=== PATIENT | female | born 1985 | race Caucasian/White ===

== ENCOUNTER → 2016-08-14 | Outpatient (CLI) | payer OTHER ==
[2016-08-14 17:37] LABS: CH 29.6; CHCM 33.2; HCT 39.9 % (34.0-46.0); HDW 2.52; HGB 12.9 gm/dL (11.4-16.0); MCHC 32.3 g/dL (31.0-37.0); MCV 89.7 fL (80.0-100.0); Mean Platelet Volume 7.1; RBC 4.45 m/uL (3.80-5.40); RDW 12.6 % (11.5-15.5); WBC 9.3 k/uL (3.8-10.6)
[2016-08-14 18:12] LABS: ALT 25 U/L (9-52); AST 18 U/L (14-36); Alkaline Phosphatase 74 U/L (38-126); Anion Gap 11 mmol/L; Blood Urea Nitrogen 12 mg/dL (7-17); Calcium 9.2 mg/dL (8.4-10.2); Carbon Dioxide 28 mmol/L (22-30); Chloride 104 mmol/L (98-107); Glucose 85 mg/dL (74-99); Non-African American GFR(MDRD) >60 (>60 ml/min/1.73 sqM); Potassium 4.1 mmol/L (3.5-5.1); Sodium 143 mmol/L (137-145); Total Bilirubin 0.2 mg/dL (0.2-1.3); Total Protein 7.3 g/dL (6.3-8.2)
== END | disposition home or self-care (01) ==
LOC: LABWHC1 17:00
PROVIDERS: ATTEND Psychiatry & Neurology Psychiatry
DX: E03.9 Hypothyroidism, unspecified (principal)
CPT/HCPCS: 36415; 80053; 84439; 84443; 85027

== ENCOUNTER → 2017-08-22 | Outpatient (CLI) | payer OTHER ==
[2017-08-22 14:19] LABS: HCT 42.5 % (34.0-46.0); MCH 29.3 pg (25.0-35.0); MCV 88.8 fL (80.0-100.0); Mean Platelet Volume 6.9; Platelet Count 255 k/uL (150-450); RBC 4.78 m/uL (3.80-5.40); RDW 12.7 % (11.5-15.5); WBC 6.6 k/uL (3.8-10.6)
[2017-08-22 14:36] LABS: ALT 33 U/L (9-52); AST 21 U/L (14-36); Albumin 4.5 g/dL (3.5-5.0); Alkaline Phosphatase 79 U/L (38-126); Anion Gap 11 mmol/L; Blood Urea Nitrogen 10 mg/dL (7-17); Calcium 9.7 mg/dL (8.4-10.2); Carbon Dioxide 28 mmol/L (22-30); Chloride 103 mmol/L (98-107); Glucose 93 mg/dL (74-99); Potassium 4.2 mmol/L (3.5-5.1); Sodium 142 mmol/L (137-145); Total Bilirubin 0.6 mg/dL (0.2-1.3); Total Protein 7.7 g/dL (6.3-8.2)
[2017-08-22 14:53] LABS: T4, Free (Free Thyroxine) 0.73 ng/dL (0.78-2.19)
== END | disposition home or self-care (01) ==
LOC: LABWHC1 13:42
PROVIDERS: ATTEND Psychiatry & Neurology Psychiatry
DX: F31.60 Bipolar disorder, current episode mixed, unspecified (principal); Z79.899 Other long term (current) drug therapy
CPT/HCPCS: 36415; 80053; 84439; 84443; 85027

== ENCOUNTER → 2018-10-15 | Outpatient (CLI) | payer SELFPAY ==
[2018-10-16 16:33] VITALS: BMI 25.8
== END ==
LOC: LABWHC1 13:37
PROVIDERS: ATTEND Psychiatry & Neurology Psychiatry
DX: E66.9 Obesity, unspecified (principal)
CPT/HCPCS: 97802

== ENCOUNTER 2018-11-09 14:48 | Emergency (ER) | payer OTHER ==
[2018-11-09 14:56] VITALS: RESP 18; TEMP 98.2
--- NOTE | 2018-11-09 15:44 | ED ---
Female Urogenital HPI - General Chief complaint: Urogenital Stated complaint: Urogenital Time Seen by Provider: 11/09/18 15:03 Source: patient, RN notes reviewed Mode of arrival: ambulatory Limitations: no limitations - History of Present Illness Initial comments: 33-year-old female sent emergency Department chief complaint of dysuria. Patient has urinary frequency and painful urination that started today. Patient reports no fever no chills no flank pain. Patient states she has some mild cramping after she urinates. Patient denies any chance . Last mental cycle 1 week ago. Denies any vaginal bleeding vaginal discharge. Last Menstrual Period: 10/20/18 - Related Data Previous Rx's Medication Instructions Recorded Phenazopyridine [Pyridium] 200 mg PO TID #6 tablet 11/09/18 Sulfamethox-Tmp 800-160Mg [Bactrim 1 each PO Q12HR #10 tab 11/09/18 Ds] Allergies Allergy/AdvReac Type Severity Reaction Status Date / Time acetaminophen [From Tylenol] Allergy Rash/Hives Verified 11/09/18 14:56 aspirin Allergy Rash/Hives Verified 11/09/18 14:56 Review of Systems ROS Statement: Those systems with pertinent positive or pertinent negative responses have been documented in the HPI. ROS Other: All systems not noted in ROS Statement are negative. Past Medical History Past Medical History: No Reported History History of Any Multi-Drug Resistant Organisms: None Reported Past Surgical History: No Surgical Hx Reported Past Psychological History: Anxiety Smoking Status: Never smoker Past Alcohol Use History: None Reported Past Drug Use History: None Reported General Exam Limitations: no limitations General appearance: alert, in no apparent distress Head exam: Present: atraumatic, normocephalic, normal inspection Neck exam: Present: normal inspection, full ROM. Absent: tenderness, meningismus, lymphadenopathy Respiratory exam: Present: normal lung sounds bilaterally. Absent: respiratory distress, wheezes, rales, rhonchi, stridor Cardiovascular Exam: Present: regular rate, normal rhythm, normal heart sounds. Absent: systolic murmur, diastolic murmur, rubs, gallop, clicks GI/Abdominal exam: Present: soft, tenderness (Mild suprapubic), normal bowel sounds. Absent: distended, guarding, rebound, rigid Back exam: Absent: CVA tenderness (R), CVA tenderness (L) Skin exam: Present: warm, dry, intact, normal color. Absent: rash Course Vital Signs 11/09/18 14:54 Temperature 98.2 F Pulse Rate 88 Respiratory 18 Rate Blood Pressure 117/73 O2 Sat by Pulse 97 Oximetry Medical Decision Making - Medical Decision Making 33-year-old female presented for dysuria. Patient is noted to have hematuria on urinalysis. CT is obtained rule out any evidence of kidney mass for kidney stone. There is no evidence of this. Patient has hemorrhagic cystitis. Patient was placed on antibiotics and Pyridium. - Lab Data Lab Results 11/09/18 11/09/18 Range/Units 15:38 15:38 Urine Color Yellow Urine Appearance Cloudy H (Clear) Urine pH 7.0 (5.0-8.0) Ur Specific [place] 1.030 (1.001-1.035) Urine Protein Trace H (Negative) Urine Glucose (UA) Negative (Negative) Urine Ketones Negative (Negative) Urine Blood Moderate H (Negative) Urine Nitrite Negative (Negative) Urine Bilirubin Negative (Negative) Urine Urobilinogen 2.0 (<2.0) mg/dL Ur Leukocyte Esterase Negative (Negative) Urine RBC 128 H (0-5) /hpf Urine WBC 4 (0-5) /hpf Ur Squamous Epith Cells 4 (0-4) /hpf Urine Bacteria Rare H (None) /hpf Urine Mucus Rare H (None) /hpf Urine HCG, Qual Not Detected (Not Detectd) Disposition Clinical Impression: Hemorrhagic cystitis Disposition: HOME SELF-CARE Condition: Stable Instructions (If sedation given, give patient instructions): Urinary Tract Infection in Women (ED) Additional Instructions: Please return to the Emergency Department if symptoms worsen or any other concerns. Prescriptions: Sulfamethox-Tmp 800-160Mg [Bactrim Ds] 1 each PO Q12HR #10 tab Phenazopyridine [Pyridium] 200 mg PO TID #6 tablet Is patient prescribed a controlled substance at d/c from ED?: No Referrals: Sky Brock MD [Primary Care Provider] - 1-2 days Time of Disposition: 17:07
[2018-11-09 16:05] LABS: Appearance,Urine Cloudy (Clear); Bacteria,Urine Rare /hpf; Bilirubin,Urine Negative (Negative); Blood,Urine Moderate (Negative); Color,Urine Yellow; Glucose,Urine (UA) Negative (Negative); Ketones,Urine Negative (Negative); Leukocyte Esterase,Urine Negative (Negative); Mucus,Urine Rare /hpf; Nitrite,Urine Negative (Negative); Protein,Urine Trace (Negative); RBC,Urine 128 /hpf (0-5); Squamous Epithelial Cell,Urine 4 /hpf (0-4)
--- NOTE | 2018-11-09 17:04 | CT ---
EXAMINATION TYPE: CT abdomen pelvis wo con DATE OF EXAM: 11/09/2018 COMPARISON: None HISTORY: Left side flank and groin pain. CT DLP: 456.8 mGycm Automated exposure control for dose reduction was used. TECHNIQUE: Helical acquisition of images from the lung bases through the pelvis. FINDINGS: Lack of intravenous contrast could compromise sensitivity. Calcification in the left hemipe lvis may represent phlebolith. LUNG BASES: No significant abnormality is appreciated. AORTA: No significant abnormality is appreciated. LIVER/GB: No significant abnormality is appreciated. Gallbladder is contracted. PANCREAS: No significant abnormality is seen. SPLEEN: No significant abnormality is seen. ADRENALS: No significant abnormality is seen. KIDNEYS: Possible parapelvic cysts involving the left kidney lower pole, there is no hydronephrosis e vident bilaterally. REPRODUCTIVE ORGANS: No significant abnormality is seen. URINARY BLADDER: No significant abnormality is seen. BOWEL: No significant abnormality is seen. FREE AIR: No Free Air is visible. ASCITES: None visible. PELVIC ADENOPATHY: None visualized. RETROPERITONEAL ADENOPATHY: No Retroperitoneal Adenopathy visible. OSSEOUS STRUCTURES: No significant abnormality is seen. IMPRESSION: NONCONTRAST EXAM. NO SIGNIFICANT ABNORMALITY IS EVIDENT.
[2018-11-09 17:26] VITALS: BP 121/69; PULSE 81
== END 2018-11-09 17:25 | disposition home or self-care (01) ==
LOC: EC 14:48
DX: N30.91 Cystitis, unspecified with hematuria (principal); Z88.6 Allergy status to analgesic agent
CPT/HCPCS: 74176; 81001; 81025; 99284

== ENCOUNTER 2018-11-12 23:52 | Emergency (ER) | payer OTHER ==
[2018-11-13] MEDS ORDERED: PHENAZOPYRIDINE 200 MG TAB PO STA (01:10)
[2018-11-13 01:31] LABS: Appearance,Urine Cloudy (Clear); Bacteria,Urine Many /hpf; Bilirubin,Urine Negative (Negative); Blood,Urine Negative (Negative); Color,Urine Yellow; Glucose,Urine (UA) Negative (Negative); Ketones,Urine Negative (Negative); Leukocyte Esterase,Urine Negative (Negative); Mucus,Urine Rare /hpf; Nitrite,Urine Negative (Negative); PH, Urine 6.5 (5.0-8.0); Protein,Urine Negative (Negative); RBC,Urine 2 /hpf (0-5); Specific Gravity,Urine 1.019 (1.001-1.035); Squamous Epithelial Cell,Urine 8 /hpf (0-4); Urobilinogen,Urine <2.0 mg/dL (<2.0)
[2018-11-13] MEDS ORDERED: CEPHALEXIN 500MG STARTER PACK 4 CAP BTL PO STA (01:36)
--- NOTE | 2018-11-13 01:39 | ED ---
Female Urogenital HPI - General Chief complaint: Urogenital Stated complaint: Bladder Infection Time Seen by Provider: 11/13/18 00:41 Source: patient Mode of arrival: ambulatory Limitations: no limitations - History of Present Illness Initial comments: 33-year-old female patient presents to the emergency department today for evaluation of urinary frequency and dysuria. Patient states the symptoms have been going on for the last several days. Patient states she was seen and evaluated here and was diagnosed with hemorrhagic cystitis. Patient states she has been taking antibiotics however her symptoms have persisted. Patient denies any fever or chills with this. Denies any nausea or vomiting. Denies any flank pain. Patient does admit to increased sexual activity and not urinating after sex. She denies any abnormal vaginal discharge or bleeding. Denies any genital itching. She denies any abdominal pain with this. - Related Data Previous Rx's Medication Instructions Recorded Phenazopyridine [Pyridium] 200 mg PO TID #6 tablet 11/09/18 Sulfamethox-Tmp 800-160Mg [Bactrim 1 each PO Q12HR #10 tab 11/09/18 Ds] Cephalexin [Keflex] 500 mg PO Q6H #28 cap 11/13/18 Phenazopyridine [Pyridium] 100 mg PO TID #9 tablet 11/13/18 Allergies Allergy/AdvReac Type Severity Reaction Status Date / Time acetaminophen [From Tylenol] Allergy Rash/Hives Verified 11/09/18 14:56 aspirin Allergy Rash/Hives Verified 11/09/18 14:56 Review of Systems ROS Statement: Those systems with pertinent positive or pertinent negative responses have been documented in the HPI. ROS Other: All systems not noted in ROS Statement are negative. Past Medical History Past Medical History: No Reported History History of Any Multi-Drug Resistant Organisms: None Reported Past Surgical History: No Surgical Hx Reported Past Psychological History: Anxiety Smoking Status: Never smoker Past Alcohol Use History: None Reported Past Drug Use History: None Reported General Exam Limitations: no limitations General appearance: alert, in no apparent distress, other (Physical well- developed, well-nourished adult female patient in no acute distress. Vital sig ns upon presentation are temperature 98.2F, pulse 79, respirations 18, blood pressure 120/82, pulse ox 99% on room air.) Eye exam: Present: normal appearance, PERRL, EOMI. Absent: scleral icterus, conjunctival injection, periorbital swelling ENT exam: Present: normal exam, normal oropharynx, mucous membranes moist Cardiovascular Exam: Present: regular rate, normal rhythm, normal heart sounds. Absent: systolic murmur, diastolic murmur, rubs, gallop, clicks GI/Abdominal exam: Present: soft, normal bowel sounds. Absent: distended, tenderness, guarding, rebound, rigid Back exam: Present: normal inspection. Absent: CVA tenderness (R), CVA tenderness (L) Neurological exam: Present: alert, oriented X3, CN II-XII intact Psychiatric exam: Present: normal affect, normal mood Skin exam: Present: warm, dry, intact, normal color. Absent: rash Course Vital Signs 11/13/18 11/13/18 00:19 01:42 Temperature 98.2 F 97.5 F L Pulse Rate 79 80 Respiratory 18 16 Rate Blood Pressure 120/82 129/79 O2 Sat by Pulse 99 99 Oximetry Medical Decision Making - Medical Decision Making 33-year-old female patient presented to the emergency department today for evaluation of dysuria and urinary frequency. Physical examination is unremarkable. There is no CVA tenderness. No abdominal tenderness. Urinalysis was obtained and did show presence of 8 white blood cells and many bacteria. Patient will be switched from Bactrim to Keflex. Urine was sent for culture. She is instructed to follow-up with her primary care physician for recheck in 1- 2 days. Return parameters were discussed in detail. She verbalizes understanding and agrees with this plan. - Lab Data Lab Results 11/13/18 11/13/18 Range/Units 01:04 01:04 Urine Color Yellow Urine Appearance Cloudy H (Clear) Urine pH 6.5 (5.0-8.0) Ur Specific [place] 1.019 (1.001-1.035) Urine Protein Negative (Negative) Urine Glucose (UA) Negative (Negative) Urine Ketones Negative (Negative) Urine Blood Negative (Negative) Urine Nitrite Negative (Negative) Urine Bilirubin Negative (Negative) Urine Urobilinogen <2.0 (<2.0) mg/dL Ur Leukocyte Esterase Negative (Negative) Urine RBC 2 (0-5) /hpf Urine WBC 8 H (0-5) /hpf Ur Squamous Epith Cells 8 H (0-4) /hpf Urine Bacteria Many H (None) /hpf Urine Mucus Rare H (None) /hpf Urine HCG, Qual Not Detected (Not Detectd) Disposition Clinical Impression: Urinary tract infection Disposition: HOME SELF-CARE Condition: Good Instructions (If sedation given, give patient instructions): Urinary Tract Infection in Women (ED) Additional Instructions: Increase fluids. Take medications as directed. Follow-up through primary care physician for recheck in 1-2 days. Return to the emergency department immediately for any new, worsening, or concerning symptoms. Prescriptions: Cephalexin [Keflex] 500 mg PO Q6H #28 cap Phenazopyridine [Pyridium] 100 mg PO TID #9 tablet Is patient prescribed a controlled substance at d/c from ED?: No Referrals: Sky Brock MD [Primary Care Provider] - 1-2 days Time of Disposition: 01:38
[2018-11-13 01:43] VITALS: BP 129/79; PULSE 80; RESP 16; TEMP 97.5
== END 2018-11-13 01:43 | disposition home or self-care (01) ==
LOC: EC 23:52
DX: N39.0 Urinary tract infection, site not specified (principal); Z88.6 Allergy status to analgesic agent
CPT/HCPCS: 81001; 81025; 99283

== ENCOUNTER 2019-01-22 04:01 | Emergency (ER) | payer OTHER ==
[2019-01-22 04:13] VITALS: BP 113/79; PULSE 90; RESP 18; TEMP 97.8
[2019-01-22] MEDS ORDERED: DIPH,PERTUS(ACELL)TETVAC-LF 0.5 ML VIAL IM ONE (04:17)
[2019-01-22] MEDS ORDERED: TOPICAL SKIN ADHESIVE 1 EACH AMP TOPICAL ONE (04:20)
--- NOTE | 2019-01-22 04:22 | ED ---
General Adult HPI - General Chief complaint: Wound/Laceration Stated complaint: eyebrow lac Time Seen by Provider: 01/22/19 04:17 Source: patient Mode of arrival: ambulatory Limitations: no limitations - History of Present Illness Initial comments: Dictation was produced using [employer] dictation software. please excuse any grammatical, word or spelling errors. Chief Complaint: Patient is a 33-year-old female with past medical history of psychiatric disease presents with a shoulder laceration. History of Present Illness: Patient is a 33-year-old female she reports that she had a hard time sleeping today she got up from her couch with the lights off and hit her head on the corner of a door jam. She noted bleeding immediately. Prescription for [facility] department for medical evaluation. Patient has no complaints. Denies any loss of consciousness. The ROS documented in this emergency department record has been reviewed and confirmed by me. Those systems with pertinent positive or negative responses have been documented in the HPI. All other systems are other negative and/or noncontributory. PHYSICAL EXAM: General Impression: Alert and oriented x3, not in acute distress HEENT: 1.5 cm laceration to the mid right eyebrow, extra-ocular movements intact, pupils equal and reactive to light bilaterally, mucous membranes moist. Cardiovascular: Heart regular rate and rhythm, S1&S2 audible, no murmurs, rubs or gallops Chest: Lungs clear to auscultation bilaterally, no rhonchi, no wheeze, no rales Abdomen: Bowel sounds present, abdomen soft, non-tender, non-distended, no organomegaly Musculoskeletal: Pulses present and equal in all extremities, no peripheral edema Motor: no focal deficits noted Neurological: CN II-XII grossly intact, no focal motor or sensory deficits noted Skin: Intact with no visualized rashes Psych: Normal affect and mood ED course: 33 female presents with forehead laceration. Vital signs upon arrival are within acceptable limits. Laceration approximates well. Laceration repaired with Dermabond. Patient has no complaints. Patient clear for discharge. He is instructed to let the Dermabond fall off by itself. Advised follow up with primary care physician for wound check. - Related Data Previous Rx's Medication Instructions Recorded Phenazopyridine [Pyridium] 200 mg PO TID #6 tablet 11/09/18 Sulfamethox-Tmp 800-160Mg [Bactrim 1 each PO Q12HR #10 tab 11/09/18 Ds] Cephalexin [Keflex] 500 mg PO Q6H #28 cap 11/13/18 Phenazopyridine [Pyridium] 100 mg PO TID #9 tablet 11/13/18 Allergies Allergy/AdvReac Type Severity Reaction Status Date / Time acetaminophen [From Tylenol] Allergy Rash/Hives Verified 01/22/19 04:13 aspirin Allergy Rash/Hives Verified 01/22/19 04:13 Review of Systems ROS Statement: Those systems with pertinent positive or pertinent negative responses have been documented in the HPI. ROS Other: All systems not noted in ROS Statement are negative. Past Medical History Past Medical History: No Reported History History of Any Multi-Drug Resistant Organisms: None Reported Past Surgical History: No Surgical Hx Reported Past Psychological History: Anxiety, Bipolar Smoking Status: Never smoker Past Alcohol Use History: None Reported Past Drug Use History: None Reported General Exam Limitations: no limitations Course Vital Signs 01/22/19 04:09 Temperature 97.8 F Pulse Rate 90 Respiratory 18 Rate Blood Pressure 113/79 O2 Sat by Pulse 100 Oximetry Procedures - Laceration Laceration #1 Consent Obtained: verbal consent Indication: laceration Site: face Description: linear Size of Sutures: other Patient Tolerated Procedure: well Disposition Clinical Impression: Laceration Disposition: HOME SELF-CARE Instructions (If sedation given, give patient instructions): Laceration (ED) Is patient prescribed a controlled substance at d/c from ED?: No Referrals: Sky Brock MD [Primary Care Provider] - 1-2 days Time of Disposition: 04:22
== END 2019-01-22 04:35 | disposition home or self-care (01) ==
LOC: EC 04:01
DX: S01.111A Laceration without foreign body of right eyelid and periocular area, initial encounter (principal); Z88.6 Allergy status to analgesic agent; Z23 Encounter for immunization; W22.8XXA Striking against or struck by other objects, initial encounter; Y93.89 Activity, other specified; Y92.009 Unspecified place in unspecified non-institutional (private) residence as the place of occurrence of the external cause
CPT/HCPCS: 12011; 90471; 90715; 99282

== ENCOUNTER → 2019-03-20 | Outpatient (CLI) | payer OTHER ==
[2019-03-20 14:53] LABS: HCT 41.1 % (34.0-46.0); HGB 13.5 gm/dL (11.4-16.0); MCH 29.7 pg (25.0-35.0); MCHC 32.9 g/dL (31.0-37.0); MCV 90.3 fL (80.0-100.0); Mean Platelet Volume 7.6; Platelet Count 242 k/uL (150-450); RBC 4.55 m/uL (3.80-5.40); RDW 14.4 % (11.5-15.5); WBC 4.5 k/uL (3.8-10.6)
[2019-03-20 19:22] LABS: African American GFR (CKD) 133.8 (60.0-200.0); Albumin 4.4 g/dL (3.80-4.90); Albumin/Globulin Ratio 1.91 (1.60-3.17); Anion Gap 7.3 mmol/L (4.00-12.00); BUN/Creat Ratio 12.86 Ratio (12.00-20.00); Carbon Dioxide 28.7 mmol/L (21.6-31.8); Globulin 2.3 g/dL (1.6-3.3); Potassium 3.8 mmol/L (3.5-5.5); T4, Free (Free Thyroxine) 0.7 ng/dL (0.80-1.80); Total Bilirubin 0.5 mg/dL (0.2-1.2); Total Protein 6.7 g/dL (6.2-8.2)
[2019-03-21 01:07] LABS: Hemoglobin A1C 5.1 % (4.0-6.0)
== END | disposition home or self-care (01) ==
LOC: LABWHC1 14:31
PROVIDERS: ATTEND Psychiatry & Neurology Psychiatry
DX: F31.60 Bipolar disorder, current episode mixed, unspecified (principal); Z79.899 Other long term (current) drug therapy
CPT/HCPCS: 36415; 80053; 83036; 84439; 84443; 85027

== ENCOUNTER 2021-08-20 14:03 | Emergency (ER) | payer OTHER ==
[2021-08-20 14:28] VITALS: BP 123/88; TEMP 98.5
[2021-08-20] MEDS ORDERED: TETRACAINE 0.5% OPHTH (PF) DROPS 4 ML BTL BOTH EYES STA (14:52)
[2021-08-20] MEDS ORDERED: FLUORESCEIN STRIPS 1 MG STRIP BOTH EYES ONE (14:52)
--- NOTE | 2021-08-20 15:51 | ED ---
Eye Problem HPI - General Chief complaint: Eye Problems Stated complaint: L eye pain Time Seen by Provider: 08/20/21 14:51 Source: patient Mode of arrival: ambulatory Limitations: no limitations - Related Data Previous Rx's Medication Instructions Recorded Phenazopyridine [Pyridium] 200 mg PO TID #6 tablet 11/09/18 Sulfamethox-Tmp 800-160Mg [Bactrim 1 each PO Q12HR #10 tab 11/09/18 Ds] Cephalexin [Keflex] 500 mg PO Q6H #28 cap 11/13/18 Phenazopyridine [Pyridium] 100 mg PO TID #9 tablet 11/13/18 Allergies Allergy/AdvReac Type Severity Reaction Status Date / Time acetaminophen [From Tylenol] Allergy Rash/Hives Verified 08/20/21 14:28 aspirin Allergy Rash/Hives Verified 08/20/21 14:28 Review of Systems ROS Statement: Those systems with pertinent positive or pertinent negative responses have been documented in the HPI. ROS Other: All systems not noted in ROS Statement are negative. Past Medical History Past Medical History: No Reported History History of Any Multi-Drug Resistant Organisms: None Reported Past Surgical History: No Surgical Hx Reported Past Psychological History: Anxiety, Bipolar Smoking Status: Never smoker Past Alcohol Use History: None Reported Past Drug Use History: None Reported General Exam Limitations: no limitations Course Vital Signs 08/20/21 08/20/21 14:23 16:00 Temperature 98.5 F Pulse Rate 110 H 70 Respiratory 18 16 Rate Blood Pressure 123/88 O2 Sat by Pulse 99 99 Oximetry Medical Decision Making - Medical Decision Making Patient presents with left eye irritation. Differential diagnosis would be foreign body, conjunctivitis, corneal ulceration. His examination was essentially normal. Case was discussed in detail with Dr. fuentes. Suggested stopping the corticosteroids. He will see the patient tomorrow morning at 8 AM. Patient was told to return to the ER for any signs or symptoms worsen. Told to return immediately if any other problems arise. All questions answered. Treatment plan discussed. Patient in agreement COVID-19 test was added after a detailed discussion with the on-call scientific technical writer who states that he has been seeing people with eye irritation and COVID-19. Patientto follow-up tomorrow morning without fail. Patient does have an ALLERGY to NSAIDs. I will going to leave the patient off of any medication have her stop the corticosteroid until she sees tomorrow. - Lab Data Lab Results 08/20/21 Range/Units 15:45 Coronavirus (PCR) Not Detected (Not Detectd) Disposition Clinical Impression: Irritation of left eye Disposition: HOME SELF-CARE Condition: Good Additional Instructions: Follow-up with the eye doctor as discussed. Go to the clinic 8 AM tomorrow morning. Do not wear contact lenses until cleared by the eye doctor. You can use [id number] artificial tears if needed. Return to the ER immediately if any symptoms worsen, new symptoms arise, or any other problems develop. Is patient prescribed a controlled substance at d/c from ED?: No Referrals: Rogelio Acosta MD [STAFF PHYSICIAN] - 08/21/21 8:00 am Time of Disposition: 15:50
[2021-08-20 16:01] VITALS: PULSE 70; RESP 16
== END 2021-08-20 16:01 | disposition home or self-care (01) ==
LOC: EC 14:03
DX: H57.12 Ocular pain, left eye (principal); Z20.822 Contact with and (suspected) exposure to COVID-19; Z88.6 Allergy status to analgesic agent
CPT/HCPCS: 87635; 99283

== ENCOUNTER 2024-02-11 20:30 | Emergency (ER) | payer OTHER ==
--- NOTE | 2024-02-11 20:59 | ED ---
General Adult HPI - General Chief complaint: Wound/Laceration Stated complaint: L Hand Injury-Dog Bite Time Seen by Provider: 02/11/24 20:56 Source: patient, RN notes reviewed Mode of arrival: ambulatory Limitations: no limitations - History of Present Illness Initial comments: 38-year-old female presents to the emergency department for evaluation of dog bite. She states that her dogs got into a fight and she was attempting to break it up. She states that she has a laceration to her left hand. She states that the dog that bit her is up-to-date on its vaccinations including rabies. Patient is unsure when her last tetanus vaccination was. - Related Data Previous Rx's Medication Instructions Recorded Phenazopyridine [Pyridium] 200 mg PO TID #6 tablet 11/09/18 Sulfamethox-Tmp 800-160Mg [Bactrim 1 each PO Q12HR #10 tab 11/09/18 Ds] Cephalexin [Keflex] 500 mg PO Q6H #28 cap 11/13/18 Phenazopyridine [Pyridium] 100 mg PO TID #9 tablet 11/13/18 Amoxic-Pot Clav 875-125Mg 1 tab PO Q12HR #20 tab 02/11/24 [Augmentin 875-125] Allergies Allergy/AdvReac Type Severity Reaction Status Date / Time acetaminophen [From Tylenol] Allergy Rash/Hives Verified 02/11/24 20:53 aspirin Allergy Rash/Hives Verified 02/11/24 20:53 Review of Systems ROS Statement: Those systems with pertinent positive or pertinent negative responses have been documented in the HPI. ROS Other: All systems not noted in ROS Statement are negative. Past Medical History Past Medical History: No Reported History History of Any Multi-Drug Resistant Organisms: None Reported Past Surgical History: No Surgical Hx Reported Past Psychological History: Anxiety, Bipolar Smoking Status: Never smoker Past Alcohol Use History: None Reported Past Drug Use History: None Reported General Exam - General Exam Comments Initial Comments: Visual Physical Exam Vital signs reviewed General: Well-appearing, nontoxic, no acute distress. Head: Normocephalic, atraumatic Eyes: PERRLA, EOMI ENT: Airway patent Chest: Nonlabored breathing Skin: No visual rash, normal skin tone, laceration to palm of left hand, multiple smaller scratches to hands and arms Neuro: Alert and oriented 3 Musculoskeletal: No gross abnormalities Limitations: no limitations General appearance: alert, in no apparent distress Head exam: Present: atraumatic, normocephalic, normal inspection Eye exam: Present: normal appearance, PERRL, EOMI. Absent: scleral icterus, conjunctival injection, periorbital swelling Extremities exam: Present: full ROM, normal capillary refill, other (3 cm laceration to the palm of the left hand, multiple puncture wounds to the distal left hand). Absent: tenderness, pedal edema, joint swelling, calf tenderness Neurological exam: Present: alert, oriented X3 Psychiatric exam: Present: normal affect, normal mood Skin exam: Present: warm, dry, other (3 cm laceration to the palm of the left hand, multiple puncture wounds to the distal left hand, 2 small puncture wounds to the right hand). Absent: intact Course Vital Signs 02/11/24 20:49 Temperature 98.1 F Pulse Rate 108 H Respiratory 18 Rate Blood Pressure 126/86 O2 Sat by Pulse 99 Oximetry Procedures - Laceration Laceration #1 Consent Obtained: verbal consent Indication: laceration Site: hand Size (cm): 3 Description: linear Depth: simple, single layer Anesthetic Used: lidocaine 1% Anesthesia Technique: local infiltration Pre-repair: wound explored, irrigated extensively Type of Sutures: other Size of Sutures: 5-0 Number of Sutures: 6 Technique: simple, interrupted Patient Tolerated Procedure: well, no complications Medical Decision Making - Medical Decision Making Quick note preformed and electronically signed by Dawn Ragland PA-C Was pt. sent in by a medical professional or institution ([facility]ning[facility], MEDIA SALES REPRESENTATIVE, urgent care, hospital, or snf...) When possible be specific @ -No Did you speak to anyone other than the patient for history (EMS, parent, family, police, friend...)? What history was obtained from this source @ -No Did you review nursing and triage notes (agree or disagree)? Why? @ -I reviewed and agree with nursing and triage notes Were old charts reviewed (outside hosp., previous admission, EMS record, old EKG, old radiological studies, urgent care reports/EKG's, snf records)? Report findings @ -No old charts were reviewed Differential Diagnosis (chest pain, altered mental status, abdominal pain women, abdominal pain men, vaginal bleeding, weakness, fever, dyspnea, syncope, headache, dizziness, GI bleed, back pain, seizure, CVA, palpatations, mental health, musculoskeletal)? @ -Dog bite, laceration, tetanus prophylaxis, this list is not all inclusive EKG interpreted by me (3pts min.). @ -None X-rays interpreted by me (1pt min.). @ -X-ray of the left hand shows no evidence of acute fracture or foreign body] CT interpreted by me (1pt min.). @ -None done U/S interpreted by me (1pt. min.). @ -None done What testing was considered but not performed or refused? (CT, X-rays, U/S, labs)? Why? @ -None What meds were considered but not given or refused? Why? @ -None Did you discuss the management of the patient with other professionals (professionals i.e. , PA, MEDIA SALES REPRESENTATIVE, lab, RT, psych nurse, social services specialist, street light servicer helper, teacher, amphibious operations officer, geriatric case manager)? Give summary @ -No Was smoking cessation discussed for >3mins.? @ -No Was critical care preformed (if so, how long)? @ -No Were there social determinants of health that impacted care today? How? (Homelessness, low income, unemployed, alcoholism, drug addiction, transportation, low edu. Level, literacy, decrease access to med. care, [facility], rehab)? @ -No Was there de-escalation of care discussed even if they declined (Discuss DNR or withdrawal of care, Hospice)? DNR status @ -No What co-morbidities impacted this encounter? (DM, HTN, Smoking, COPD, CAD, Cancer, CVA, ARF, Chemo, Hep., AIDS, mental health diagnosis, sleep apnea, morbid obesity)? @ -None Was patient admitted / discharged? Hospital course, mention meds given and route, prescriptions, significant lab abnormalities, going to OR and other pertinent info. @ -[Discharge. Patient presented to the emergency department for evaluation of dog bite to her hands. She is unsure of her last tetanus vaccination. This was updated today. She was also provided a dose of Augmentin while in the emergency department and a prescription was sent to patient's pharmacy. The wounds were extensively irrigated especially the laceration of the palm of the left hand. This was repaired with loose suturing. She was advised to follow-up with the hand specialist. She is understanding agreeable with plan. Patient stable at time of discharge. Case discussed with Dr. Sherman Undiagnosed new problem with uncertain prognosis? @ -No Drug Therapy requiring intensive monitoring for toxicity (Heparin, Nitro, Insulin, Cardizem)? @ -No Were any procedures done? @ -No Diagnosis/symptom? @ -Dog bite, laceration Acute, or Chronic, or Acute on Chronic? @ -Acute Uncomplicated (without systemic symptoms) or Complicated (systemic symptoms)? @ -Uncomplicated Side effects of treatment? @ -No Exacerbation, Progression, or Severe Exacerbation? @ -No Poses a threat to life or bodily function? How? (Chest pain, [place], [place], pneumonia, PE, COPD, DKA, ARF, appy, cholecystitis, CVA, Diverticulitis, Homicidal, Suicidal, threat to staff... and all critical care pts) @ -No Disposition Clinical Impression: Laceration, Dog bite Disposition: HOME SELF-CARE Condition: Stable Instructions (If sedation given, give patient instructions): Animal Bite (ED) Additional Instructions: Please picking machine operator helper antibiotics and take to completion. Follow up with your primary care provider. Return to the emergency department for new or worsening symptoms. Prescriptions: Amoxic-Pot Clav 875-125Mg [Augmentin 875-125] 1 tab PO Q12HR #20 tab Is patient prescribed a controlled substance at d/c from ED?: No Referrals: Sky Brock MD [Primary Care Provider] - 1-2 days Kunal Avery DO [Doctor of Osteopathic Medicine] - 1-2 days
[2024-02-11] MEDS: DIPH,PERTUS(ACELL)TETVAC-LF 0.5 ML VIAL IM ONE (21:26)
[2024-02-11] MEDS: LIDOCAINE 1% INJ 10MG/ML (20 ML MDV) SQ ONE (21:33)
[2024-02-11] MEDS: LIDOCAINE/EPINEPHR/TETRACAINE 5 ML BOTTLE TOPICAL ONE (21:34)
[2024-02-11] MEDS: AMOXIC-POT CLAV 875-125MG 1 EACH TAB PO STA (21:34)
--- NOTE | 2024-02-11 21:34 | XR ---
EXAMINATION TYPE: XR hand complete LT DATE OF EXAM: 02/11/2024 COMPARISON: None HISTORY: Dog bite puncture wounds lateral hand and wrist TECHNIQUE: 3 view left hand FINDINGS: No acute fractures or dislocations evident. Soft tissues appear normal. No radiopaque forei gn body is evident. There is some soft tissue injury type change present. Follow up exams can be performed 7-10 days from acute trauma for continued pain. IMPRESSION: 1. No acute osseous abnormality. 2. No radiopaque foreign bodies. 3. Soft tissue injury thenar eminence
[2024-02-11] MEDS: Acetaminophen-Codeine 300-30mg TAB PO STA (23:44)
[2024-02-11] MEDS: ACET/COD 300 MG/30 MG STARTER PACK 6 TAB BTL PO STA (23:45)
[2024-02-11 23:56] VITALS: BP 125/82; PULSE 89; RESP 16; TEMP 98.3
== END 2024-02-11 23:56 | disposition home or self-care (01) ==
LOC: EC 20:30
DX: S61.012A Laceration without foreign body of left thumb without damage to nail, initial encounter (principal); Z88.6 Allergy status to analgesic agent; Z23 Encounter for immunization; Z88.8 Allergy status to other drugs, medicaments and biological substances; W54.0XXA Bitten by dog, initial encounter
CPT/HCPCS: 99283; 12002; 90471; 73130; 90715; J2001